=== PATIENT | male | born 2000 | race Caucasian/White ===

== ENCOUNTER 2023-11-07 10:00 | Emergency (ER) | payer OTHER ==
[~2023-11-07] VITALS: Ht 172.7 cm; Wt 77.1 kg
[2023-11-07] MEDS ORDERED: SULFAMETH/TRIMETH 800/160 MG TABLET ONE (10:21)
[2023-11-07] MEDS ORDERED: CEphaleXIN 500 MG CAPSULE ONE (10:21)
[2023-11-07] MEDS ORDERED: SULFAMETH/TRIMETH 800/160 MG TABLET PO ONE (10:30)
[2023-11-07] MEDS ORDERED: CEphaleXIN 500 MG CAPSULE PO ONE (10:30)
[2023-11-07] MEDS ORDERED: CEPH250C PO (10:33)
[2023-11-07] MEDS ORDERED: SULF1TAB48 PO (10:33)
[2023-11-07 10:51] VITALS: BP 125/90; O2SAT 99
== END 2023-11-07 10:52 | disposition home or self-care (01) ==
LOC: ER 10:00
DX: L02.31 Cutaneous abscess of buttock (principal); L03.116 Cellulitis of left lower limb
CPT/HCPCS: A4606; A4663

== ENCOUNTER 2023-11-09 10:56 | Emergency (ER) | payer OTHER ==
[~2023-11-09] VITALS: Ht 172.7 cm; Wt 77.1 kg
[~2023-11-09 10:56] MED LIST: CEPH250C PO; SULF1TAB48 PO
[2023-11-09 11:12] VITALS: O2SAT 99
== END 2023-11-09 12:41 | disposition left against medical advice (07) ==
LOC: ER 10:56
DX: L02.91 Cutaneous abscess, unspecified (principal); Z53.21 Procedure and treatment not carried out due to patient leaving prior to being seen by health care provider
CPT/HCPCS: A4606; A4663

== ENCOUNTER 2023-11-09 16:15 | Emergency (ER) | payer OTHER ==
[~2023-11-09] VITALS: Ht 172.7 cm; Wt 77.1 kg
[2023-11-09 16:22] VITALS: O2SAT 98
== END 2023-11-09 19:02 | disposition left against medical advice (07) ==
LOC: ER 16:15
DX: R00.1 Bradycardia, unspecified (principal); Z79.899 Other long term (current) drug therapy; Z53.21 Procedure and treatment not carried out due to patient leaving prior to being seen by health care provider
CPT/HCPCS: A4606; A4663